=== PATIENT | female | born 1985 | race Caucasian/White ===

== ENCOUNTER 2020-06-17 08:12 | Emergency (ER) | payer OTHER ==
[2020-06-17 08:48] LABS: HEMOGLOBIN 14.2 gm/dl (12.3-15.3); RED BLOOD COUNT 4.63 M/UL (4.00-5.10); WHITE BLOOD COUNT 6.2 K/UL (4.5-11.0)
== END 2020-06-17 12:50 | disposition home or self-care (01) ==
LOC: ER1 08:12
PROVIDERS: Emergency Medicine
DX: O20.0 Threatened abortion (principal); Z90.89 Acquired absence of other organs; Z88.0 Allergy status to penicillin; Z3A.01 Less than 8 weeks gestation of pregnancy
CPT/HCPCS: 76817; 84702; 85025; 86900; 86901; 99284